=== PATIENT | male | born 1990 | race Caucasian/White ===

== ENCOUNTER 2021-07-20 16:08 | Emergency (ER) | payer OTHER ==
[~2021-07-20] VITALS: Ht 180.3 cm; Wt 83.9 kg
[2021-07-20 17:02] VITALS: BP 135/72
[2021-07-20] MEDS ORDERED: BEN10 PO (17:26)
[2021-07-20] MEDS ORDERED: LACT10CA PO (17:26)
[2021-07-20] MEDS ORDERED: LOPE-289 PO (17:26)
--- NOTE | 2021-07-20 17:27 | NUR ---
Pt ambulated to bed 12 with steady/even gait.
--- NOTE | 2021-07-20 17:30 | NUR ---
No nursing interventions performed.
--- NOTE | 2021-07-20 17:39 | NUR ---
Patient discharged with v/s stable. Written and verbal after care instructions given and explained. Patient alert, oriented and verbalized understanding of instructions. Ambulatory with steady gait. All questions addressed prior to discharge. ID band removed. Patient advised to follow up with PMD. Rx of Bentyl, Lactobacillus Rhamnosus GG, Imodium given. Patient educated on indication of medication including possible reaction and side effects. Opportunity to ask questions provided and answered.
== END 2021-07-20 17:39 | disposition home or self-care (01) ==
LOC: MED 16:08
DX: R10.30 Lower abdominal pain, unspecified (principal); R19.7 Diarrhea, unspecified; Z79.899 Other long term (current) drug therapy
CPT/HCPCS: 99283